=== PATIENT | female | born 1980 | race Caucasian/White ===

== ENCOUNTER 2022-01-17 18:28 | Emergency (ER) | payer OTHER ==
[2022-01-17 19:32] VITALS: RESP 18
--- NOTE | 2022-01-17 20:14 | ED ---
General Adult HPI - General Chief complaint: Upper Respiratory Infection Stated complaint: Cough,Fever Time Seen by Provider: 01/17/22 19:36 Source: patient, RN notes reviewed Mode of arrival: ambulatory Limitations: no limitations - History of Present Illness Initial comments: 41-year-old female presents to the emergency department for evaluation of fever, cough, and body aches, onset last night. Patient states her daughter is sick and has had several other sick exposures. Reports taking Tylenol prior to arrival. States she has been able to tolerate oral intake without difficulty. Denies dizziness, chest pain, difficulty breathing, shortness of breath, nausea, vomiting, diarrhea, dysuria, or hematuria. - Related Data Home Medications Medication Instructions Recorded Confirmed Ascorbic Acid/Collagen Hydr 1 cap PO DAILY 01/17/22 01/17/22 [Collagen Plus Vit C Capsule] Immune Support Supplement 1 cap PO DAILY 01/17/22 01/17/22 Turmeric Root Extract [Turmeric] 500 mg PO DAILY 01/17/22 01/17/22 methIMAzole [Tapazole] 5 mg PO HS 01/17/22 01/17/22 Previous Rx's Medication Instructions Recorded Oseltamivir [Tamiflu] 75 mg PO Q12HR #10 cap 01/17/22 Allergies Allergy/AdvReac Type Severity Reaction Status Date / Time No Known Allergies Allergy Verified 01/17/22 20:48 Review of Systems ROS Statement: Those systems with pertinent positive or pertinent negative responses have been documented in the HPI. ROS Other: All systems not noted in ROS Statement are negative. Past Medical History Additional Past Medical History / Comment(s): Graves Additional Past Surgical History / Comment(s): Decompression of the eyes Smoking Status: Current every day smoker Past Alcohol Use History: None Reported Past Drug Use History: Marijuana General Exam Limitations: no limitations (Well-developed, well-nourished female in no acute distress. Initial temperature 98.2, pulse 117, respirations 18, blood pressure 129/63, pulse ox 98% on room air.) General appearance: alert, in no apparent distress Head exam: Present: atraumatic, normocephalic, normal inspection Eye exam: Present: normal appearance. Absent: scleral icterus, conjunctival injection, periorbital swelling ENT exam: Present: normal exam, normal oropharynx, mucous membranes moist Expanded TM/Canal exam: Erythema: Right TM, Left TM Throat exam: normal inspection. negative: tonsillar erythema, tonsillomegaly, tonsillar exudate Neck exam: Present: normal inspection, full ROM. Absent: tenderness, meningismus, lymphadenopathy Respiratory exam: Present: normal lung sounds bilaterally. Absent: respiratory distress, wheezes, rales, rhonchi, stridor, chest wall tenderness Cardiovascular Exam: Present: normal rhythm, tachycardia, normal heart sounds. Absent: systolic murmur, diastolic murmur, rubs, gallop, clicks GI/Abdominal exam: Present: soft, normal bowel sounds. Absent: distended, tenderness, guarding, rebound, rigid Back exam: Absent: CVA tenderness (R), CVA tenderness (L) Neurological exam: Present: alert, oriented X3, CN II-XII intact Psychiatric exam: Present: normal affect, normal mood Skin exam: Present: warm, dry, intact, normal color. Absent: rash Course Vital Signs 01/17/22 01/17/22 19:28 22:07 Temperature 98.2 F 99.7 F H Pulse Rate 117 H 93 Respiratory 18 18 Rate Blood Pressure 129/63 100/68 O2 Sat by Pulse 98 97 Oximetry Medical Decision Making - Medical Decision Making This is a well-appearing 41-year-old female in no significant past medical history who presents to the emergency department for evaluation of fever, cough, and body aches, onset last night. Upon exam, patient is well-appearing and in no acute distress. Physical exam findings are unremarkable with the exception of mildly erythematous bilateral ear canals and tympanic membranes. Vital signs are stable. Influenza A positive, Covid negative. Patient will be discharged home for follow-up with her PCP for recheck. Return parameters discussed in detail. Patient verbalizes understanding and agrees with this plan. Attending: Pepe - Lab Data Lab Results 01/17/22 01/17/22 Range/Units 20:08 20:08 Coronavirus (PCR) Not Detected (Not Detectd) Influenza Type A RNA Detected H (Not Detectd) Influenza Type B (PCR) Not Detected (Not Detectd) Disposition Clinical Impression: Influenza A Disposition: HOME SELF-CARE Condition: Stable Instructions (If sedation given, give patient instructions): Influenza (ED) Additional Instructions: Alternate Tylenol and Motrin as needed for fever control. Increase fluids and rest. You should remain home until you have been fever free for 24 hours without medicine. Follow-up with your PCP for R recheck in the next 24-48 hours. Return to the emergency department with any new, worsening, or concerning symptoms. Prescriptions: Oseltamivir [Tamiflu] 75 mg PO Q12HR #10 cap Is patient prescribed a controlled substance at d/c from ED?: No Referrals: None,Stated [Primary Care Provider] - 1-2 days Time of Disposition: 20:51
[2022-01-17] MEDS ORDERED: OSELTAMIVIR 75 MG CAP PO STA (20:42)
[2022-01-17 22:08] VITALS: BP 100/68; PULSE 93; TEMP 99.7
== END 2022-01-17 21:35 | disposition home or self-care (01) ==
LOC: EC 18:28
DX: J10.1 Influenza due to other identified influenza virus with other respiratory manifestations (principal); Z20.822 Contact with and (suspected) exposure to COVID-19; F17.200 Nicotine dependence, unspecified, uncomplicated; F12.90 Cannabis use, unspecified, uncomplicated
CPT/HCPCS: 87502; 87635; 99283

== ENCOUNTER → 2022-07-18 | Outpatient (CLI) | payer OTHER ==
[2022-07-18 15:40] LABS: T4, Free (Free Thyroxine) 0.32 ng/dL (0.800-1.800)
== END | disposition home or self-care (01) ==
LOC: LABWHC1 09:10
PROVIDERS: ATTEND Internal Medicine Endocrinology, Diabetes & Metabolism
DX: E05.90 Thyrotoxicosis, unspecified without thyrotoxic crisis or storm (principal)
CPT/HCPCS: 36415; 84439; 84443; 84445; 84480